=== PATIENT | female | born 1965 | race Caucasian/White ===

== ENCOUNTER 2021-07-03 16:13 | Emergency (ER) | payer BC ==
[2021-07-03] MEDS ORDERED: KETOROLAC TROMETHAMINE 15 MG/ML VIAL IM ONE (16:31)
[2021-07-03] MEDS ORDERED: ACETAMINOPHEN 325 MG TABLET (FP) PO ONE (16:31)
[2021-07-03] MEDS ORDERED: ACETAMINOPHEN 325 MG TABLET (FP) ONE (16:34)
[2021-07-03] MEDS ORDERED: KETOROLAC TROMETHAMINE 15 MG/ML VIAL ONE (16:34)
[2021-07-03 16:44] VITALS: BP 146/68; PULSE 89; TEMP 98.6; BMI 28.8
== END 2021-07-03 18:47 | disposition home or self-care (01) ==
LOC: FER 16:13
PROC: 2W3DX1Z Immobilization of Left Lower Arm using Splint (ICD-10-PCS; principal; 2021-07-03)
PROC: 3E0233Z Introduction of Anti-inflammatory into Muscle, Percutaneous Approach (ICD-10-PCS; 2021-07-03)
DX: S99.912A Unspecified injury of left ankle, initial encounter (principal); W10.9XXA Fall (on) (from) unspecified stairs and steps, initial encounter; Y92.9 Unspecified place or not applicable
CPT/HCPCS: 73610-TC-LT-FY; 73630-TC-LT; 99284-25